=== PATIENT | female | born 1985 | race Asian ===

== ENCOUNTER 2017-12-21 12:23 | Emergency (ER) | payer OTHER ==
[~2017-12-21] VITALS: Ht 149.9 cm; Wt 53.5 kg
[~2017-12-21 12:23] MED LIST: FIORICET 325 MG1 TAB PO; IBU-6600 MG PO; REGLAN10 MG PO
[2017-12-21] MEDS ORDERED: TAMIFLU75 M1 PO (12:51)
--- NOTE | 2017-12-21 12:51 | ED INFLUENZA/URI COMPLAINT ---
History of Present Illness General Chief Complaint: General Adult Stated Complaint: SENT BY [facility] FOR[facility] BLOOD PRESSURE Source: patient, old records Exam Limitations: no limitations Vital Signs & Intake/Output Vital Signs & Intake/Output Vital Signs Date Time Temp Pulse Resp B/P B/P Pulse O2 O2 Flow FiO2 Mean Ox Delivery Rate 12/21 1252 98.0 89 18 103/74 99 Room Air Allergies Coded Allergies: NO KNOWN ALLERGIES (07/02/14) Reconcile Medications Acetaminophen/Butalbital/Caf (Fioricet 325 MG-50 MG-40 MG) 1 TAB TAB 1 TAB PO Q4P PRN headache do not exceed 6 tablet(s) in 24 hours Ibuprofen (Ibu-6) 600 MG TAB 1 TAB PO Q8H PRN PAIN/FEVERS METOCLOPRAMIDE HCL (Reglan) 10 MG TABLET 1 TAB PO Q6H PRN headache/nausea Oseltamivir Phosphate (Tamiflu) 75 MG CAPSULE 1 CAP PO BID FLU Triage Nurses Notes Reviewed? yes Onset: Gradual Duration: day(s): (2), constant Timing: recent history Severity: mild Severity Numbers: 4 Prior Episodes/Possible Cause: occassional episodes No Modifying Factors: none Associated Symptoms: cough HPI: 32 YEAR OLD FEMALE HO SARCOIDOSIS PRESENTS TO THE ER SENT BY URGENT CARE FOR EVAL OF LOW BP. PT'S SON WAS BEING SEEN AT URGENT WITH POSITIVE FLU WHEN SHE WANTED TO BE CHECKED FOR IT WELL. SHE REPORTS TO A SLIP BOX CHANGER COUGH FOR A FEW DAYS. NO FEVER, CHILLS, CP, ABD PAIN, NVD. NO URINARY COMPLAITNS. PT STATES HER BP IS NORMALLY LOW, NO DIZZYINESS, LIGHTHEADEDNESS, PALPITATIONS SHE IS WITHOUT CMOPLAINTS CURRENTLY. (Flex James) Past History Travel History Traveled to [place] past 21 day No Medical History Any Pertinent Medical History? see below for history Other Medical Hx: sarcoidosis Surgical History Surgical History: none Psychosocial History What is your primary language Persian Family History Hx Contributory? No (Flex James) Review of Systems Review of Systems Constitutional: Reports: see HPI. Comments Review of systems: See HPI, All other systems negative. Constitutional, no chills no fever HEENT: no sore throat no congestion Cardiovascular: No chest pain , no palpitation Skin: no rashes, no change in skin Respiratory: No dyspnea cough GI: No nausea no vomiting, no diarrhea, : No dysuria No hematuria, no frequency Muscle skeletal: No joint pain, no back pain Neurologic: , no headache Heme/endocrine: No bruising Immunology: No lymphadenopathy (Flex James) Physical Exam Physical Exam General Appearance: well developed/nourished, no apparent distress, alert Ears, Nose, Throat: normal ENT inspection, moist mucous membrane Comments: Well-developed well-nourished patient in no apparent distress. HEENT: Atraumatic, extraocular motion intact Neck: Supple, FROM Back: FROM Cardiovascular: Regular rate and rhythms Respiratory: No respiratory distress. Patient speaking in full complete sentences Extremities: full range of motion Neuro: awake, alert, and oriented to person, place and time. There were no obvious focal neurologic abnormalities. Skin: Warm & dry;No appreciable rash on exposed skin Psych: Mood affect normal, normal memory normal judgment. Core Measures Sepsis Present: No Sepsis Focused Exam Completed? No (Flex James) Progress Differential Diagnosis: influenza, otitis, pneumonia, pharyngitis, sinusitis Plan of Care: Patient is without any complaints blood pressure within normal limits compared to previous records patient normally runs in the 100s to 110S systolic. Her son just tested positive for the flu she was prescribed a inhaler the [facility] lungs are clear auscultation here discussed with the plan of care we'll treat her with Tamiflu return precautions were discussed at length. Initial ED EKG: none (Flex James) Departure Departure Time of Disposition: 1250 Disposition: HOME OR SELF CARE Condition: Stable Clinical Impression Primary Impression: Viral syndrome Referrals: Pauline PEREZ,Magdalene Horvath (PCP/Family) Additional Instructions: TAMIFLU DIRECTED. REST, DRINK PLENTY OF FLUIDS. RETURN WITH ANY CONCERNS Departure Forms: Customer Survey General Discharge Information Prescriptions: Current Visit Scripts Oseltamivir Phosphate (Tamiflu) 1 CAP PO BID #10 CAP (Flex James) PA/SLIP BOX CHANGER Co-Sign Statement Statement: ED Attending supervision documentation- [] I saw and evaluated the patient. I have also reviewed all the pertinent lab results and diagnostic results. I agree with the findings and the plan of care as documented in the PA's/SLIP BOX CHANGER's documentation. [X] I have reviewed the ED Record and agree with the PA's/SLIP BOX CHANGER's documentation. [] Additions or exceptions (if any) to the PAs/SLIP BOX CHANGER's note and plan are summarized below: [] (Lisa PEREZ,Kervin Lockett)
[2017-12-21 12:52] VITALS: BP 103/74
== END 2017-12-21 13:04 ==
LOC: ERH 12:23
DX: B34.9 Viral infection, unspecified (principal)